=== PATIENT | female | born 1995 | race Hispanic/Latino ===

== ENCOUNTER 2023-04-25 23:11 | Inpatient (IN) | payer BC ==
[2023-04-25] MEDS ORDERED: Tranexamic Acid 1,000 MG/10 ML VIAL IVP PRN (23:22)
[2023-04-25] MEDS ORDERED: Methylergonovine 0.2 MG/ML VIAL IM PRN (23:22)
[2023-04-25] MEDS ORDERED: hydrALAZINE 20 MG/ML VIAL SLOW IVP PRN (23:22)
[2023-04-25] MEDS ORDERED: fentaNYL 50 mcg/mL 1 mL Vial SLOW IVP PRN (23:22)
[2023-04-25] MEDS ORDERED: Ondansetron PF 4 MG/2 ML Vial IVP PRN (23:22)
[2023-04-25] MEDS ORDERED: Promethazine HCl 25 MG/ML VIAL IM PRN (23:22)
[2023-04-25] MEDS ORDERED: Carboprost 250 MCG/ML AMP IM PRN (23:22)
[2023-04-25] MEDS ORDERED: Misoprostol 200 MCG TAB PR PRN (23:22)
[2023-04-25] MEDS ORDERED: Diphenoxylate HCl/Atropine Tablet PO PRN (23:22)
[2023-04-25] MEDS ORDERED: Acetaminophen 500 MG TAB PO PRN (23:22)
[2023-04-25] MEDS ORDERED: Lidocaine 1% (PF) 30 ML VIAL SC PRN (23:22)
[2023-04-25] MEDS ORDERED: Oxytocin 10 UNITS/ML VIAL ONE (23:29)
[2023-04-25] MEDS ORDERED: Oxytocin 30 units/NS 500 ML 500 ML IV SCH (23:30)
[2023-04-26 00:44] LABS: Hematocrit 31.7 % (34.9-44.5); Hemoglobin 10.7 g/dL (12.0-15.5); Mean Corpuscular HGB CONC 33.8 g/dL (32.0-36.0); Mean Corpuscular Hemoglobin 28.6 pg (27.0-33.0); Mean Corpuscular Volume 84.8 fl (81.6-98.3); Mean Platelet Volume 11.9 fl (7.4-10.4); Platelet Count 160 10x3/uL (150-450); RBC Distribution Width 12.2 % (11.5-14.5); Red Blood Cell (RBC) Count 3.74 10x6/uL (3.90-5.03); White Blood Cell (WBC) Count 10.7 10x3/uL (3.5-10.5)
[2023-04-26 01:16] LABS: HBSAg Index 0.12 S/CO (0-0.99); Hep B Surf Ag - L&D Non-Reactive S/CO (NonReactive)
[2023-04-26 01:17] LABS: Syphilis Antibody Nonreactive (Nonreactive); Syphilis Antibody Index 0.04 S/CO (<1.00 Non-Reactive)
[2023-04-26] MEDS ORDERED: Benzocaine-Menthol 82.5 ML CAN TOP PRN (01:18)
[2023-04-26] MEDS ORDERED: Preparation H Ointment 28 GM TUBE PR PRN (01:18)
[2023-04-26] MEDS ORDERED: Milk Of Magnesia 30 ML UDCUP PO PRN (01:18)
[2023-04-26] MEDS ORDERED: Ondansetron PF 4 MG/2 ML Vial IVP PRN (01:18)
[2023-04-26] MEDS ORDERED: diphenhydrAMINE 25 MG CAP PO PRN (01:18)
[2023-04-26] MEDS ORDERED: hydrALAZINE 20 MG/ML VIAL SLOW IVP PRN (01:18)
[2023-04-26] MEDS ORDERED: Promethazine HCl 25 MG/ML VIAL IM PRN (01:18)
[2023-04-26] MEDS ORDERED: Bisacodyl 10 MG SUPP PR PRN (01:18)
[2023-04-26] MEDS ORDERED: HYDROcodone/Acetaminophen 5/325 mg Tablet PO PRN (01:18)
[2023-04-26] MEDS ORDERED: Lanolin Ointment 7 GM TUBE TOP PRN (01:18)
[2023-04-26] MEDS ORDERED: Boostrix 0.5 ML (Tdap) VIAL (>/=7 yrs of age) IM ONE (01:18)
[2023-04-26 01:23] VITALS: BMI 22.6
[2023-04-26] MEDS: Ibuprofen 800 MG TAB PO SCH ×2 (07:05→14:48)
[2023-04-26] MEDS: Ferrous Sulfate 325 MG TAB PO SCH ×2 (08:51→16:45)
[2023-04-26] MEDS: Prenatal Vitamin 1 TAB PO SCH (08:51)
[2023-04-26] MEDS: Docusate 100 MG CAP PO SCH ×2 (08:51→21:08)
[2023-04-27] MEDS: Ibuprofen 800 MG TAB PO SCH ×3 (04:13→15:19)
[2023-04-27] MEDS: Ferrous Sulfate 325 MG TAB PO SCH (07:18)
[2023-04-27 07:35] VITALS: BP 104/73; TEMP 98.3
[2023-04-27] MEDS: Docusate 100 MG CAP PO SCH ×2 (08:25→08:27)
[2023-04-27] MEDS: Prenatal Vitamin 1 TAB PO SCH ×2 (08:25→09:25)
== END 2023-04-27 17:15 | disposition home or self-care (01) | DRG 807 ==
LOC: CSHLD/OP 23:11 → CSHLD 23:23 → CSHPED 04-26 02:10
PROVIDERS: ADMIT Student in an Organized Health Care Education/Training Program; ATTEND Student in an Organized Health Care Education/Training Program
PROC: 10E0XZZ Delivery of Products of Conception, External Approach (ICD-10-PCS; principal; 2023-04-25)
DX: O60.14X0 Preterm labor third trimester with preterm delivery third trimester, not applicable or unspecified (principal); Z37.0 Single live birth; Z3A.36 36 weeks gestation of pregnancy
CPT/HCPCS: 85027; 86780; 86850; 86900; 86901; 87340; 99285; J2590